=== PATIENT | female | born 1960 | race Hispanic/Latino ===

== ENCOUNTER 2016-09-10 06:09 | Emergency (ER) | payer OTHER ==
[2016-09-10 06:14] VITALS: BMI 28.8
[2016-09-10 06:21] VITALS: RESP 18; TEMP 98; O2SAT 98
--- NOTE | 2016-09-10 07:19 | ED PDOC ---
Arrival/HPI - General Historian: Patient - History of Present Illness Time/Duration: < week Symptom Onset: Sudden Symptom Course: Improving - General Chief Complaint: Trauma Time Seen by Provider: 09/10/16 07:05 - History of Present Illness Narrative History of Present Illness (Text): 56 F with no significant pmh presents after a traumatic fall. Pt states that 2 days ago she slipped over a glass and made a split with her feet which she felt a pop in her L hamstring. She than tries to rest for the past 2 days but than she started to feel a shooting pain down her legs so she came to the ED. Ptreports aren she is able to walk on it but she limps due to the pain. She denies any mcnair, dizziness, sob, cp, abd pain, n/v/d. (Laz Hernandez) Past Medical History - Provider Review Nursing Documentation Reviewed: Yes - Past History Past History: No Previous - Infectious Disease Hx of Infectious Diseases: None - Tetanus Immunization Tetanus Immunization: Unknown - Cardiac Hx Cardiac Disorders: No - Pulmonary Hx Respiratory Disorders: No - Endocrine/Metabolic Hx Hypothyroidism: Yes - Hematological/Oncological Hx Blood Transfusions: No Hx Blood Transfusion Reaction: No - Musculoskeletal/Rheumatological Hx Back Pain: Yes Hx Falls: No Hx Herniated Disk: Yes Hx Spinal Stenosis: Yes Other/Comment: neuropathy. sciatica - Gastrointestinal Other/Comment: Lap Band - Psychiatric Hx Depression: No Hx Emotional Abuse: No Hx Physical Abuse: No Hx Substance Use: No - Surgical History Hx Gastric Bypass Surgery: Yes (lap band) - Anesthesia Hx Anesthesia: Yes Hx Anesthesia Reactions: No Hx Malignant Hyperthermia: No - Suicidal Assessment Feels Threatened In Home Enviroment: No Family/Social History - Physician Review Nursing Documentation Reviewed: Yes Family/Social History: No Known Family HX Smoking Status: Former Smoker Hx Alcohol Use: No Hx Substance Use: No Hx Substance Use Treatment: No Allergies/Home Meds Allergies/Adverse Reactions: Allergies Sulfa (Sulfonamide Antibiotics) Allergy (Verified 04/21/16 02:40) RASH Home Medications: Home Meds Medication Instructions Recorded Confirmed Lacosamide [Vimpat] 50 mg PO DAILY 05/27/12 05/24/14 Zolpidem Tartrate [Ambien] 10 mg PO HS 05/27/12 05/24/14 Levothyroxine [Synthroid] 0.05 mg PO DAILY 05/20/13 05/24/14 Review of Systems - Review of Systems Constitutional: absent: Fatigue, Fevers Eyes: absent: Vision Changes ENT: absent: Hearing Changes Respiratory: absent: SOB, Cough Cardiovascular: absent: Chest Pain, Palpitations Gastrointestinal: absent: Abdominal Pain, Diarrhea, Nausea, Vomiting Genitourinary Female: absent: Dysuria, Frequency Musculoskeletal: Arthralgias, Myalgias Skin: absent: Rash Neurological: absent: Headache, Dizziness Endocrine: absent: Diaphoresis Psychiatric: absent: Anxiety Physical Exam Temperature: Afebrile Blood Pressure: Normal Pulse: Bradycardic Respiratory Rate: Normal Appearance: Positive for: Well-Appearing, Non-Toxic, Comfortable Mental Status: Positive for: Alert and Oriented X 3 - Systems Exam Head: Present: Atraumatic, Normocephalic Pupils: Present: PERRL Extroacular Muscles: Present: EOMI Mouth: Present: Moist Mucous Membranes Neck: Present: Normal Range of Motion Respiratory/Chest: Present: Clear to Auscultation, Good Air Exchange. No: Respiratory Distress, Accessory Muscle Use Cardiovascular: Present: Regular Rate and Rhythm, Normal S1, S2. No: Murmurs Abdomen: Present: Normal Bowel Sounds. No: Tenderness, Distention, Peritoneal Signs Upper Extremity: Present: Normal Inspection. No: Cyanosis, Edema Lower Extremity: Present: Normal Inspection, Normal ROM, Tenderness. No: Edema , CALF TENDERNESS, Swelling, Erythema Neurological: Present: GCS=15, CN II-XII Intact, Speech Normal Skin: Present: Warm, Dry, Normal Color. No: Rashes Psychiatric: Present: Alert, Oriented x 3, Normal Insight, Normal Concentration Medical Decision Making ED Course and Treatment: Impression: 56 F with no significant pmh presents after a traumatic fall. Differential Diagnosis included but are not limited to: hip fx vs avulsion Plan: - Xray of L hip and pelvis - RICE - Pain control - Reassess and disposition Prior Visits: Notes and results from previous visits were reviewed. On 04/21/16 patient came in complaining of neck pain. Progress Notes: 09/10/16 07:36 - Currently denies any pain. Awaiting Xray. 09/10/16 08:19 Xray as read by me and Dr Bacon shows no acute fractures or avulsions. Awaiting official read. Pt is currently ambulating. If her pain gets worse she was instructed to follow up with an orthopedic physician for further imaging. At home continue RICE treatment. (Laz Hernandez) 09/10/16 09:00 Patient seen by resident Came up with treatment and disposition plan with resident Pt after a mechanica fall, extremity pain, weight bearing, ambulating. No distal neurovasc. deficits on evaluation pt informed that she will need ortho f/u and further imaging if pain persists or does not resolve in the next 2 days (Elier Bacon) - RAD Interpretation Radiology Orders: 09/10/16 07:25 Hip Left [HIP MIN 2V W/ PELVIS LT] [RAD] Stat - PA / RESIDENTIAL TREATMENT COUNSELOR / Resident Statement MD/DO has reviewed & agrees with the documentation as recorded. MD/DO has examined the patient and agrees with the treatment plan. Disposition/Present on Arrival - Present on Arrival Any Indicators Present on Arrival: No History of DVT/PE: No History of Uncontrolled Diabetes: No Urinary Catheter: No History of Decub. Ulcer: No History Surgical Site Infection Following: None - Disposition Have Diagnosis and Disposition been Completed?: Yes Disposition Time: 08:20 Patient Plan: Discharge - Disposition Diagnosis: Groin pain Disposition: HOME/ ROUTINE Condition: IMPROVED Additional Instructions: Hanna Mohr, thank you for letting us take care of you today. Your provider was Dr Bacon. You were treated for hip pain after fall. The emergency medical care you received today was directed at your acute symptoms. If you were prescribed any medication, please fill it and take as directed. It may take several days for your symptoms to resolve. Return to the Emergency Department if your symptoms worsen, do not improve, or if you have any other problems. Please contact your doctor or call one of the physicians/clinics you have been referred to that are listed on the Patient Visit Information form that is included in your discharge packet. Bring any paperwork you were given at discharge with you along with any medications you are taking to your follow up visit. Our treatment cannot replace ongoing medical care by a primary care provider (PCP) outside of the emergency department. Thank you for allowing the [facility] team to be part of your care today. Instructed to follow up with an orthopedic physician for further imaging if her pain worsens. Continue RICE treatment at home. Follow up with your PMD with in 1 week.
--- NOTE | 2016-09-10 08:45 | RAD ---
PROCEDURE: Left Hip and pelvis X-ray Radiographs. HISTORY: fall COMPARISON: None. FINDINGS: BONES: Normal. No fracture. JOINTS: Normal. SOFT TISSUES: Normal. OTHER FINDINGS: None. IMPRESSION: Normal left hip radiographs.
[2016-09-10 09:16] VITALS: BP 122/84; PULSE 60
== END 2016-09-10 09:00 | disposition home or self-care (01) ==
LOC: ED 06:09
DX: R10.30 Lower abdominal pain, unspecified (principal); Z87.891 Personal history of nicotine dependence; E03.9 Hypothyroidism, unspecified

== ENCOUNTER 2017-01-20 02:54 | Emergency (ER) | payer OTHER ==
[2017-01-20 02:59] VITALS: BMI 28.1
[2017-01-20 03:00] VITALS: BP 155/71; PULSE 60; TEMP 97.9
--- NOTE | 2017-01-20 03:11 | ED PDOC ---
Arrival/HPI - General Time Seen by Provider: 01/20/17 03:02 Historian: Patient - History of Present Illness Narrative History of Present Illness (Text): 01/20/17 03:10 Hanna Mohr is a 56 year old female who presents to the ED complaining of sore throat, frontal sinus pressure, and cough since yesterday. Patient was placed on Zithromax and has been taking Mucinex for congestion but denies any significant relief. Patient denies any fever, chills, shortness of breath, wheezing, nausea, vomiting, dizziness, or any other complaints. Symptom Onset: Gradual Symptom Course: Unchanged Activities at Onset: Light Context: Home Past Medical History - Provider Review Nursing Documentation Reviewed: Yes - Past History Past History: No Previous - Infectious Disease Hx of Infectious Diseases: None - Tetanus Immunization Tetanus Immunization: Unknown - Cardiac Hx Cardiac Disorders: No - Pulmonary Hx Respiratory Disorders: No - HEENT Hx HEENT Disorder: No - Renal Hx Renal Disorder: No - Endocrine/Metabolic Hx Hypothyroidism: Yes - Hematological/Oncological Hx Blood Transfusions: No Hx Blood Transfusion Reaction: No - Integumentary Hx Dermatological Disorder: No - Musculoskeletal/Rheumatological Hx Back Pain: Yes Hx Falls: No Hx Herniated Disk: Yes Hx Spinal Stenosis: Yes Other/Comment: neuropathy. sciatica - Gastrointestinal Hx Gastrointestinal Disorders: Yes Other/Comment: Lap Band - Genitourinary/Gynecological Hx Genitourinary Disorders: No - Psychiatric Hx Depression: No Hx Emotional Abuse: No Hx Physical Abuse: No Hx Substance Use: No - Surgical History Hx Section: Yes (x2) Hx Gastric Bypass Surgery: Yes (lap band) - Anesthesia Hx Anesthesia: Yes Hx Anesthesia Reactions: No Hx Malignant Hyperthermia: No - Suicidal Assessment Feels Threatened In Home Enviroment: No Family/Social History - Physician Review Nursing Documentation Reviewed: Yes Family/Social History: Unknown Family HX Smoking Status: Former Smoker Hx Alcohol Use: No Hx Substance Use: No Hx Substance Use Treatment: No Allergies/Home Meds Allergies/Adverse Reactions: Allergies Sulfa (Sulfonamide Antibiotics) Allergy (Verified 01/20/17 02:59) RASH Home Medications: Home Meds Medication Instructions Recorded Confirmed Azithromycin [Z-Audie] 250 mg PO DAILY 01/20/17 01/20/17 Review of Systems - Physician Review All systems were reviewed & negative as marked: Yes - Review of Systems Constitutional: Normal. absent: Fevers Eyes: Normal ENT: Sore Throat, Sinus Congestion Respiratory: Cough. absent: SOB, Sputum, Wheezing Cardiovascular: Normal. absent: Chest Pain Gastrointestinal: Normal. absent: Abdominal Pain, Diarrhea, Nausea, Vomiting Genitourinary Female: Normal. absent: Dysuria, Frequency, Hematuria, Urine Output Changes Musculoskeletal: Normal. absent: Back Pain, Neck Pain Skin: Normal. absent: Rash Neurological: Headache. absent: Dizziness Endocrine: Normal Hemo/Lymphatic: Normal Psychiatric: Normal Physical Exam Vital Signs Reviewed: Yes Vital Signs Temp Pulse Resp BP Pulse Ox 01/20/17 03:52 18 98 01/20/17 03:00 97.9 F 60 17 155/71 H 97 Temperature: Afebrile Blood Pressure: Normal Pulse: Regular Respiratory Rate: Normal Appearance: Positive for: Well-Appearing, Non-Toxic, Comfortable Pain Distress: None Mental Status: Positive for: Alert and Oriented X 3 - Systems Exam Head: Present: Atraumatic, Normocephalic Pupils: Present: PERRL Extroacular Muscles: Present: EOMI Conjunctiva: Present: Normal Mouth: Present: Moist Mucous Membranes Pharnyx: Present: ERYTHEMA (Minimal erythema to posterior pharynx). No: EXUDATE , TONSILS ENLARGED, Peritonsilar Swelling, Uvular Deviation, Muffled/Hoarse Voice, Strider, Soft Palate/Uvular Edema Nose (External): Present: Atraumatic Nose (Internal): Present: Other (Nasal congestion) Neck: Present: Normal Range of Motion. No: Meningeal Signs, MIDLINE TENDERNESS , Paraspinal Tenderness Respiratory/Chest: Present: Clear to Auscultation, Good Air Exchange. No: Respiratory Distress, Accessory Muscle Use Cardiovascular: Present: Regular Rate and Rhythm, Normal S1, S2. No: Murmurs Abdomen: Present: Normal Bowel Sounds. No: Tenderness, Distention, Peritoneal Signs Upper Extremity: Present: Normal Inspection. No: Cyanosis, Edema Lower Extremity: Present: Normal Inspection. No: Edema Neurological: Present: GCS=15, CN II-XII Intact, Speech Normal Skin: Present: Warm, Dry, Normal Color. No: Rashes Psychiatric: Present: Alert, Oriented x 3, Normal Insight, Normal Concentration Medical Decision Making ED Course and Treatment: 01/20/17 03:10 Impression: 56 year old female c/o sore throat, frontal sinus pressure, and cough since yesterday. Differential Diagnosis included but are not limited to: pharyngitis vs. URI vs. sinusitis Plan: -- Reassess and disposition Progress Notes: Pt is in no acute distress. Discussed plan with pt, who verbalizes understanding. Patient stable for discharge. Instructed to f/u with PMD within 1 -2 days or return if symptoms persist or worsen. - Scribe Statement The provider has reviewed the documentation as recorded by the Scribe Beverly Heath All medical record entries made by the Scribe were at my direction and personally dictated by me. I have reviewed the chart and agree that the record accurately reflects my personal performance of the history, physical exam, medical decision making, and the department course for this patient. I have also personally directed, reviewed, and agree with the discharge instructions and disposition. Disposition/Present on Arrival - Present on Arrival Any Indicators Present on Arrival: No History of DVT/PE: No History of Uncontrolled Diabetes: No Urinary Catheter: No History of Decub. Ulcer: No History Surgical Site Infection Following: None - Disposition Have Diagnosis and Disposition been Completed?: Yes Diagnosis: Pharyngitis, URI (upper respiratory infection) Disposition: HOME/ ROUTINE Disposition Time: 03:12 Patient Plan: Discharge Condition: GOOD Discharge Instructions (ExitCare): Pharyngitis (ED), Upper Respiratory Infection (ED) Additional Instructions: Drink plenty of liquids/Continue recently started Zithromax meds/take medication prescribed/follow up with your doctor Prescriptions: Fexofenadine/Pseudoephedrine [Janet-D 12 Hour Tablet] 1 each PO BID PRN #[id number] PRN Reason: Nasal Congestion Forms: [facility] [facility] (Arabic)
[2017-01-20 03:53] VITALS: RESP 18; O2SAT 98
== END 2017-01-20 03:53 | disposition home or self-care (01) ==
LOC: ED 02:54
DX: J02.9 Acute pharyngitis, unspecified (principal); Z87.891 Personal history of nicotine dependence

== ENCOUNTER 2017-04-12 11:56 | Emergency (ER) | payer OTHER ==
[2017-04-12 12:10] VITALS: BP 130/90; PULSE 85; RESP 18; TEMP 97.8; O2SAT 100
[2017-04-12 12:11] VITALS: BMI 27.5
[2017-04-12 12:51] LABS: BASO # 0.02 K/mm3 (0.0-2.0); BASO % 0.3 % (0.0-3.0); EOS % 0.6 % (1.5-5.0); GRAN # 4.09 (1.4-6.5); GRAN % 64.6 % (50.0-68.0); HEMATOCRIT 42.8 % (36.0-48.0); LYMPH # 1.7 (1.2-3.4); LYMPH % 26.9 % (22.0-35.0); MEAN CELL VOLUME 88.2 fl (80.0-105.0); MEAN CORPUSCULAR HEMOGLOBIN 30.1 pg (25.0-35.0); MEAN CORPUSCULAR HGB CONC 34.1 g/dl (31.0-37.0); MONO # 0.5 (0.1-0.6); MONO % 7.6 % (1.0-6.0); RED CELL DISTRIBUTION WIDTH 12.4 % (11.5-14.5); WHITE BLOOD COUNT 6.3 10^3/ul (4.5-11.0)
[2017-04-12 13:01] LABS: ALB/GLOB RATIO 1.3 (1.1-1.8); ALKALINE PHOSPHATASE 79 U/L (38-126); ALT/SGPT 37 U/L (7-56); AMYLASE 55 U/L (35-125); AST/SGOT 29 U/L (14-36); BILIRUBIN,TOTAL 0.9 mg/dL (0.2-1.3); BLOOD UREA NITROGEN 12 mg/dL (7-21); CALCIUM 9.8 mg/dL (8.4-10.5); CARBON DIOXIDE 30 mmol/L (21-33); CHLORIDE 102 mmol/L (98-107); GFR AFRICAN-AMERICAN > 60; GLUCOSE,RANDOM 104 mg/dL (70-110); POTASSIUM 4.4 mmol/L (3.6-5.0); SODIUM 141 mmol/L (132-148); TOTAL PROTEIN 7.8 g/dL (5.8-8.3)
--- NOTE | 2017-04-12 13:36 | ED PDOC ---
Arrival/HPI - General Chief Complaint: Medical Clearance Time Seen by Provider: 04/12/17 12:19 Historian: Patient - History of Present Illness Narrative History of Present Illness (Text): 04/12/17 13:20 A 56 year old female, who denies any significant past medical history, presents to the emergency department for accidental needle stick puncture to the right 3rd digit. The patient reports she was at work when she was handling a 20 gauge angiocath needle that slipped and punctured the volar aspect of her finger drawing blood. The patient states she cleaned the wound and applied a bandage to it. The patient states she is unsure of the HIV/hepatitis status of sources the needle stick and does not know if there has been contact with HIV or Hepatitis C. The patient was sent to the emergency department due to employee protocol for medical clearance. The patient does note her tetanus vaccination is up to date. The patient is completely asymptomatic and has no complaints at this time. Time/Duration: Prior to Arrival Symptom Onset: Sudden Symptom Course: Unchanged Activities at Onset: Light Context: Work Past Medical History - Provider Review Nursing Documentation Reviewed: Yes - Past History Past History: No Previous - Infectious Disease Hx of Infectious Diseases: None - Tetanus Immunization Tetanus Immunization: Unknown - Reproductive Menopause: Yes - Cardiac Hx Cardiac Disorders: No - Pulmonary Hx Respiratory Disorders: No - Neurological Hx Neurological Disorder: No - HEENT Hx HEENT Disorder: No - Renal Hx Renal Disorder: No - Endocrine/Metabolic Hx Endocrine Disorders: Yes Hx Hypothyroidism: Yes - Hematological/Oncological Hx Blood Disorders: No - Integumentary Hx Dermatological Disorder: No - Musculoskeletal/Rheumatological Hx Musculoskeletal Disorders: Yes Hx Back Pain: Yes Hx Herniated Disk: Yes Hx Spinal Stenosis: Yes Other/Comment: neuropathy. sciatica - Gastrointestinal Hx Gastrointestinal Disorders: Yes Other/Comment: Lap Band - Genitourinary/Gynecological Hx Genitourinary Disorders: No - Psychiatric Hx Psychophysiologic Disorder: No Hx Substance Use: No - Surgical History Hx Section: Yes (x2) Hx Gastric Bypass Surgery: Yes (lap band) - Anesthesia Hx Anesthesia: Yes Hx Anesthesia Reactions: No Hx Malignant Hyperthermia: No - Suicidal Assessment Feels Threatened In Home Enviroment: No Family/Social History - Physician Review Nursing Documentation Reviewed: Yes Family/Social History: No Known Family HX Smoking Status: Former Smoker Hx Alcohol Use: No Hx Substance Use: No Hx Substance Use Treatment: No Allergies/Home Meds Allergies/Adverse Reactions: Allergies Sulfa (Sulfonamide Antibiotics) Allergy (Verified 01/20/17 02:59) RASH Home Medications: Home Meds Medication Instructions Recorded Confirmed Azithromycin [Z-Audie] 250 mg PO DAILY 01/20/17 01/20/17 Review of Systems - Physician Review All systems were reviewed & negative as marked: Yes - Review of Systems Constitutional: absent: Fevers Cardiovascular: absent: Chest Pain Gastrointestinal: absent: Abdominal Pain Skin: Other (puncture to right 3rd digit) Neurological: absent: Headache, Dizziness Physical Exam Vital Signs Reviewed: Yes Vital Signs Temp Pulse Resp BP Pulse Ox 04/12/17 12:09 97.8 F 85 18 130/90 100 Temperature: Afebrile Blood Pressure: Normal Pulse: Regular Respiratory Rate: Normal Appearance: Positive for: Well-Appearing, Non-Toxic, Comfortable Pain Distress: None Mental Status: Positive for: Alert and Oriented X 3 - Systems Exam Head: Present: Atraumatic, Normocephalic Pupils: Present: PERRL Extroacular Muscles: Present: EOMI Conjunctiva: Present: Normal Mouth: Present: Moist Mucous Membranes Neck: Present: Normal Range of Motion Respiratory/Chest: Present: Clear to Auscultation, Good Air Exchange. No: Respiratory Distress, Accessory Muscle Use Cardiovascular: Present: Regular Rate and Rhythm, Normal S1, S2. No: Murmurs Abdomen: Present: Normal Bowel Sounds. No: Tenderness, Distention, Peritoneal Signs Back: Present: Normal Inspection Upper Extremity: Present: Normal ROM, NORMAL PULSES, Neurovascularly Intact, Capillary Refill < 2s, Other (small puncture to volar aspect of distal tip of right 3rd digit; no erthema, edema, pus, or active bleeding.). No: Cyanosis, Edema, Tenderness, Swelling, Erythema, Temperature Abnormalties, Deformity Lower Extremity: Present: Normal Inspection. No: Edema Neurological: Present: GCS=15, CN II-XII Intact, Speech Normal Skin: Present: Warm, Dry, Normal Color. No: Rashes Psychiatric: Present: Alert, Oriented x 3, Normal Insight, Normal Concentration Medical Decision Making ED Course and Treatment: 04/12/17 13:36 Patient is nontoxic well-appearing in no distress with stable vital signs. pt with needlestick to right 3rd finger. pt alert and oriented in no distress. source of needle stick is unknown; lab is pending cbc wnl cmp; wnl rapid HIV: negative ua; wnl Patient's tetanus is up-to-date Progress Notes: The patient was informed on the risks and benefits of receiving a HIV prophylaxis. The patient has refused HIV prophylaxis. pt states she wants to wait until HIV status from source is obtained and then will decide if she will start HIV prophylaxis. I have advised the patient that she has 48 hours to start HIV prophylaxis. I've advised the patient that the earlier that she starts the HIV prophylaxis the lower the risk of huy HIV. Patient is aware and states she will follow with the source's HIV status. pt was advised that even if source HIV is negative the patient could still have contracted HIV recently and tests would be too early to be detectable. Patient was advised that she is to follow-up with employee health tomorrow to return immediately if she changes her mind and chooses to start HIV prophylaxis Patient verbalizes understanding of discharge instructions and need for immediate followup. all aspects of this case were discussed the attending of record. impression; needlestick, puncture wound finger Follow up with Employee health TOMORROW. Return immediately if you change your mind and choose to start HIV prophylaxis. - Lab Interpretations Lab Results: 04/12/17 12:30 04/12/17 12:30 Lab Results 04/12/17 12:35: Urine Color Yellow, Urine Appearance Clear, Urine pH 7.0, Ur Specific [place] <= 1.005, Urine Protein Negative, Urine Glucose (UA) Negative, Urine Ketones Negative, Urine Blood Negative, Urine Nitrate Negative, Urine Bilirubin Negative, Urine Urobilinogen 0.2, Ur Leukocyte Esterase Negative 04/12/17 12:30: HIV-1 Ab Rapid Screen Non reactive 04/12/17 12:30: Sodium 141, Potassium 4.4, Chloride 102, Carbon Dioxide 30, Anion Gap 14, BUN 12, Creatinine 0.7, Est GFR ( Amer) > 60, Est GFR (Non- Af Amer) > 60, Random Glucose 104, Calcium 9.8, Total Bilirubin 0.9, AST 29, ALT 37, Alkaline Phosphatase 79, Total Protein 7.8, Albumin 4.5, Globulin 3.4, Albumin/Globulin Ratio 1.3, Amylase 55 04/12/17 12:30: WBC 6.3, RBC 4.85, Hgb 14.6, Hct 42.8, MCV 88.2, MCH 30.1, MCHC 34.1, RDW 12.4, Plt Count 345, MPV 10.0, Gran % 64.6, Lymph % (Auto) 26.9, [place] % (Auto) 7.6 H, Eos % (Auto) 0.6 L, Baso % (Auto) 0.3, Gran # 4.09, Lymph # 1.7 , [place] # 0.5, Eos # 0.0, Baso # 0.02 - Scribe Statement The provider has reviewed the documentation as recorded by the Lizzyibdevon Oneal Provider Scribe Attestation: All medical record entries made by the Scribe were at my direction and personally dictated by me. I have reviewed the chart and agree that the record accurately reflects my personal performance of the history, physical exam, medical decision making, and the department course for this patient. I have also personally directed, reviewed, and agree with the discharge instructions and disposition. Disposition/Present on Arrival - Present on Arrival Any Indicators Present on Arrival: No History of DVT/PE: No History of Uncontrolled Diabetes: No Urinary Catheter: No History of Decub. Ulcer: No History Surgical Site Infection Following: None - Disposition Have Diagnosis and Disposition been Completed?: Yes Diagnosis: Needlestick injury of finger Disposition: HOME/ ROUTINE Disposition Time: 14:01 Patient Plan: Discharge Patient Problems: Current Active Problems Problem Status Onset Needlestick injury of finger Acute Condition: GOOD Discharge Instructions (ExitCare): Needle Stick Injuries (ED), Postexposure Prophylaxis (ED) Additional Instructions: Follow up with employee health tomorrow return if you change your mind and wish to start HIV prophylaxis [employer] Employee Regarding your Work Related Injury, you are instructed to do all of the following by next day: 1. Notify [employer] [facility] Employee Health Department of the sustained injury and arrange for any follow-up appointments if needed during the next business day. If the office is closed or no answer is received, please leave a detailed voice message. Message should include your full name, department and lunch counter manager, date of injury, date of ED visit if applicable. Employee Health can be reached at [phone]. 2. If there is time lost, notify [employer] [facility] [employer] Human Resources Department of the work related injury the next business day at [phone]. Referrals: Jakob Kaye MD [Primary Care Provider] - Follow up with primary Forms: [employer] (Persian)
[2017-04-12] MEDS ORDERED: Emtricitabine-Tenofovir 200 mg-300 mg Tab PO STA (13:58)
[2017-04-12 14:06] LABS: URINE BILIRUBIN NEGATIVE (NEGATIVE); URINE BLOOD NEGATIVE (NEGATIVE); URINE GLUCOSE (UA) NEGATIVE (NEGATIVE); URINE KETONE NEGATIVE (NEGATIVE); URINE LEUKOCYTE ESTERASE NEGATIVE Leu/uL (NEGATIVE); URINE PROTEIN NEGATIVE mg/dL (<30 mg/dL); URINE UROBILINOGEN 0.2 E.U./dL (<1 E.U./dL)
[2017-04-12 14:07] LABS: URINE APPEARANCE CLEAR (CLEAR); URINE COLOR YELLOW (YELLOW)
== END 2017-04-12 14:00 | disposition home or self-care (01) ==
LOC: ED 11:56
DX: S61.232A Puncture wound without foreign body of right middle finger without damage to nail, initial encounter (principal); W46.0XXA Contact with hypodermic needle, initial encounter; Y99.0 Civilian activity done for income or pay; Z87.891 Personal history of nicotine dependence; E03.9 Hypothyroidism, unspecified; Z88.2 Allergy status to sulfonamides

== ENCOUNTER 2017-05-23 10:26 | Emergency (ER) | payer OTHER ==
[2017-05-23 10:37] VITALS: BMI 27.3
[2017-05-23 10:38] VITALS: BP 136/82; PULSE 57; RESP 18; TEMP 98.4; O2SAT 98
--- NOTE | 2017-05-23 10:49 | ED PDOC ---
Arrival/HPI - General Chief Complaint: Lower Extremity Problem/Injury Time Seen by Provider: 05/23/17 10:41 Historian: Patient - History of Present Illness Narrative History of Present Illness (Text): 05/23/17 10:46 56 y/o female, pmh including hypothyroidism, allergic to sulfa, not on any antiplatete or anticoagulant, c/o both knee and left hand injury but with rt. knee pain s/p fall at work x 1 hour. 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 knee and landed on the lt. hand, no hand or wrist pain, no head/neck/back injury, no numbness or tingling, no urinary or bowel incontinence or retention, no rash, no other medical or psychological complaints. Past Medical History - Provider Review Nursing Documentation Reviewed: Yes - Past History Past History: No Previous - Infectious Disease Hx of Infectious Diseases: None - Tetanus Immunization Tetanus Immunization: Unknown - Cardiac Hx Cardiac Disorders: No - Pulmonary Hx Respiratory Disorders: No - Neurological Hx Neurological Disorder: No - HEENT Hx HEENT Disorder: No - Renal Hx Renal Disorder: No - Endocrine/Metabolic Hx Endocrine Disorders: Yes Hx Hypothyroidism: Yes - Hematological/Oncological Hx Blood Disorders: No - Integumentary Hx Dermatological Disorder: No - Musculoskeletal/Rheumatological Hx Musculoskeletal Disorders: Yes Hx Back Pain: Yes Hx Herniated Disk: Yes Hx Spinal Stenosis: Yes Other/Comment: neuropathy. sciatica - Gastrointestinal Hx Gastrointestinal Disorders: Yes Other/Comment: Lap Band - Genitourinary/Gynecological Hx Genitourinary Disorders: No - Psychiatric Hx Psychophysiologic Disorder: No Hx Substance Use: No - Surgical History Hx Section: Yes (x2) Hx Gastric Bypass Surgery: Yes (lap band) - Anesthesia Hx Anesthesia: Yes Hx Anesthesia Reactions: No Hx Malignant Hyperthermia: No - Suicidal Assessment Feels Threatened In Home Enviroment: No Family/Social History - Physician Review Nursing Documentation Reviewed: Yes Family/Social History: Unknown Family HX Smoking Status: Former Smoker Hx Alcohol Use: No Hx Substance Use: No Hx Substance Use Treatment: No Allergies/Home Meds Allergies/Adverse Reactions: Allergies Sulfa (Sulfonamide Antibiotics) Allergy (Verified 05/23/17 10:35) RASH Home Medications: Home Meds Medication Instructions Recorded Confirmed Levothyroxine Sodium [Levoxyl] 05/23/17 Zolpidem [Ambien] 05/23/17 Review of Systems - Review of Systems Constitutional: absent: Fatigue, Fevers Eyes: absent: Vision Changes ENT: absent: Hearing Changes Respiratory: absent: SOB, Cough Cardiovascular: absent: Chest Pain Gastrointestinal: absent: Abdominal Pain, Nausea, Vomiting Musculoskeletal: Arthralgias. absent: Back Pain, Neck Pain, Joint Swelling, Myalgias Skin: absent: Rash, Pruritis, Skin Lesions Neurological: absent: Headache, Dizziness Psychiatric: absent: Anxiety, Depression, Suicidal Ideation Physical Exam Vital Signs Reviewed: Yes Vital Signs Temp Pulse Resp BP Pulse Ox 05/23/17 10:37 98.4 F 57 L 18 136/82 98 Temperature: Afebrile Blood Pressure: Normal Pulse: Bradycardic Respiratory Rate: Normal Appearance: Positive for: Well-Appearing, Non-Toxic, Comfortable Pain Distress: Mild Mental Status: Positive for: Alert and Oriented X 3 - Systems Exam Head: Present: Atraumatic, Normocephalic. No: Tenderness, Contusion, Swelling, Ecchymosis, Abrasion, Laceration, Other Pupils: Present: PERRL Extroacular Muscles: Present: EOMI Conjunctiva: Present: Normal Ears: Present: NORMAL TM, Normal Canal. No: Erythema Mouth: Present: Moist Mucous Membranes Pharnyx: No: ERYTHEMA, EXUDATE, TONSILS ENLARGED, Uvular Deviation, Soft Palate/ Uvular Edema Nose (External): Present: Atraumatic. No: Abrasion, Contusion, Laceration Nose (Internal): Present: Normal Inspection, No Active Bleeding. No: Rhinorrhea , Septal Hematoma, Epistaxis Neck: Present: Normal Range of Motion, Trachea Midline. No: Meningeal Signs, MIDLINE TENDERNESS, Paraspinal Tenderness, Lymphadenopathy Respiratory/Chest: Present: Clear to Auscultation, Good Air Exchange. No: Respiratory Distress, Accessory Muscle Use, Wheezes, Decreased Breath Sounds, Rales, Retracting, Rhonchi, Tender to Palpation Cardiovascular: Present: Regular Rate and Rhythm, Normal S1, S2. No: Murmurs, Peripheal Pulses Present, Tachycardic Abdomen: Present: Normal Bowel Sounds. No: Tenderness, Distention, Peritoneal Signs, Rebound, Guarding Back: Present: Normal Inspection Upper Extremity: Present: Normal Inspection, Normal ROM, NORMAL PULSES, Neurovascularly Intact, Capillary Refill < 2s, Other (Lt. hand/wrist: no tenderness or swelling, no scaphoid tenderness, FROM without limitation, no rash , no ecchymosis, sensation intact, motor 5/5, +radial pulse, capillary refill< 2 seconds, neurovascular intact. ). No: Cyanosis, Edema, Deformity Lower Extremity: Present: Normal Inspection, Other (Both knees: +ttp on the rt. anterior knee region or swelling, lt. knee no tenderness or swelling, FROM without limitation, sensation intact, motor 5/5, +DPPT pulses, capillary refill < 2 seconds, neurovascular intact, no abrasion/laceration. ). No: Edema Neurological: Present: GCS=15, Speech Normal, Motor Func Grossly Intact, Gait Normal, Memory Normal Skin: Present: Warm, Dry, Normal Color. No: Rashes Psychiatric: Present: Alert, Oriented x 3, Normal Insight, Normal Concentration Medical Decision Making ED Course and Treatment: 05/23/17 10:50 -Rt. knee xray -Pt. refused pain med -Observe and reassess 05/23/17 11:49 -Pt. refused pain med, wants to go back to work, stated that she can walk with no limping. -Rt. knee xray show no fracture or dislocation, mild anterior soft tissue swelling. -pt. refused pain med prescription as well. -Discharge home with erum wrap, crutches, take tylenol or motrin for pain, follow up with your own pmd and orthopedic within 2 days, follow up with your employee health within 2 days as well, return to the ER for any new or worsening signs or symptoms. - RAD Interpretation Radiology Orders: 05/23/17 10:45 KNEE W PATELLA RIGHT 3 VIEW [RAD] Stat PROCEDURE: Right Knee Radiographs. HISTORY: rt. knee injury s/p fall COMPARISON: None. FINDINGS: BONES: There is no acute displaced fracture or bone destruction. Bone alignment is normal. There is periarticular bone demineralization. JOINTS: There is mild tricompartmental degenerative osteoarthrosis with marginal spurring and tibial spiking, worse in the medial compartment. JOINT EFFUSION: There is a moderate suprapatellar joint effusion. OTHER FINDINGS: There is small linear calcification medial to the medial femoral condyles, likely sequela of remote injury. IMPRESSION: No acute displaced fracture or dislocation. Moderate suprapatellar joint effusion. Senior Hr Business Partner: Radiologist - PA / OPERATIONS MANAGER STATION / Resident Statement MD/DO has reviewed & agrees with the documentation as recorded. Disposition/Present on Arrival - Present on Arrival Any Indicators Present on Arrival: No History of DVT/PE: No History of Uncontrolled Diabetes: No Urinary Catheter: No History of Decub. Ulcer: No History Surgical Site Infection Following: None - Disposition Have Diagnosis and Disposition been Completed?: Yes Diagnosis: Accidental fall, Knee injury, Hand injury, Knee contusion Disposition: HOME/ ROUTINE Disposition Time: 10:50 Patient Plan: Discharge Condition: GOOD Additional Instructions: -Discharge home with erum wrap, crutches, take tylenol or motrin for pain, follow up with your own pmd and orthopedic within 2 days, follow up with your employee health within 2 days as well, return to the ER for any new or worsening signs or symptoms. Referrals: Jakob Kaye MD [Primary Care Provider] - Follow up with primary Sin Mei MD [Staff Provider] - Follow up with primary Forms: [employer] (Kiswahili), WORK NOTE
--- NOTE | 2017-05-23 11:47 | RAD ---
PROCEDURE: Right Knee Radiographs. HISTORY: rt. knee injury s/p fall COMPARISON: None. FINDINGS: BONES: There is no acute displaced fracture or bone destruction. Bone alignment is normal. There is periarticular bone demineralization. JOINTS: There is mild tricompartmental degenerative osteoarthrosis with marginal spurring and tibial spiking, worse in the medial compartment. JOINT EFFUSION: There is a moderate suprapatellar joint effusion. OTHER FINDINGS: There is small linear calcification medial to the medial femoral condyles, likely sequela of remote injury. IMPRESSION: No acute displaced fracture or dislocation. Moderate suprapatellar joint effusion.
== END 2017-05-23 11:54 | disposition home or self-care (01) ==
LOC: ED 10:26
DX: S80.01XA Contusion of right knee, initial encounter (principal); S69.92XA Unspecified injury of left wrist, hand and finger(s), initial encounter; W19.XXXA Unspecified fall, initial encounter; Y99.0 Civilian activity done for income or pay; E03.9 Hypothyroidism, unspecified; Z87.891 Personal history of nicotine dependence; Z88.2 Allergy status to sulfonamides; Z98.84 Bariatric surgery status

== ENCOUNTER 2017-05-26 06:26 | Emergency (ER) | payer OTHER ==
[2017-05-26 06:27] VITALS: BMI 27.3
[2017-05-26 06:29] VITALS: BP 142/77; PULSE 68; RESP 17; TEMP 97.6; O2SAT 98
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
--- NOTE | 2017-05-26 09:19 | RAD ---
PROCEDURE: Right small finger radiographs. HISTORY: pain COMPARISON: None available TECHNIQUE: AP radiograph of the right hand, as well as spot oblique and lateral images of small finger were obtained. FINDINGS: RIGHT SMALL FINGER: Unremarkable right 5th digit without acute displaced fracture identified. Remainder of the right hand (as seen on the AP view) grossly unremarkable. JOINTS: No dislocation. SOFT TISSUES: Unremarkable. No evidence of radiopaque foreign body. OTHER FINDINGS: None. IMPRESSION: No acute displaced fracture or dislocation identified. If symptoms persist or if there is continued clinical concern, x-ray follow-up in 7-10 days should be considered.
== END 2017-05-26 07:31 | disposition home or self-care (01) ==
LOC: ED 06:26
DX: S56.417A Strain of extensor muscle, fascia and tendon of right little finger at forearm level, initial encounter (principal); X50.0XXA Overexertion from strenuous movement or load, initial encounter; Y92.9 Unspecified place or not applicable

== ENCOUNTER 2018-06-30 13:47 | Outpatient (CLI) | payer OTHER | END 2018-06-30 13:48 | disposition home or self-care (01) | LOC: LAB 13:47 ==

== ENCOUNTER 2018-08-18 07:07 | Emergency (ER) | payer OTHER ==
[2018-08-18 07:08] VITALS: BMI 27.3
[2018-08-18 07:14] VITALS: BP 143/63; PULSE 97; RESP 16; O2SAT 97
[2018-08-18] MEDS ORDERED: Lidocaine 5% Patch TD ONE (07:20)
--- NOTE | 2018-08-18 07:31 | ED PDOC ---
Arrival/HPI - General Chief Complaint: Back Pain Time Seen by Provider: 08/18/18 07:12 - History of Present Illness Narrative History of Present Illness (Text): 08/18/18 07:24 A 58 year old female, whose past medical history includes hypothyroidism spinal stenosis and sulfa allergy, presents to the ED complaining of back pain for the past 2 days. Patient reports pain is in the middle of her back and worsens with cough. 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 Patient also notes PO intake of Motrin, without any significant improvement in pain. Patient denies any fevers, chills, headache, dizziness, chest pain, shortness of breath, dyspnea on exertion, cough, abdominal pain, nausea, vomiting, diarrhea, neck pain, urinary/bowel changes, or any other complaints. PMD: Dr. Kaye Time/Duration: < week (2 days) Symptom Onset: Gradual Symptom Course: Unchanged Activities at Onset: Other (Pushing a bed) Context: Work Past Medical History - Provider Review Nursing Documentation Reviewed: Yes - Past History Past History: No Previous - Infectious Disease Hx of Infectious Diseases: None - Tetanus Immunization Tetanus Immunization: Unknown - Reproductive Menopause: Yes - Cardiac Hx Cardiac Disorders: No - Pulmonary Hx Respiratory Disorders: No - Neurological Hx Neurological Disorder: No - HEENT Hx HEENT Disorder: No - Renal Hx Renal Disorder: No - Endocrine/Metabolic Hx Endocrine Disorders: Yes Hx Hypothyroidism: Yes - Hematological/Oncological Hx Blood Disorders: No - Integumentary Hx Dermatological Disorder: No - Musculoskeletal/Rheumatological Hx Musculoskeletal Disorders: Yes Hx Back Pain: Yes Hx Herniated Disk: Yes Hx Spinal Stenosis: Yes Other/Comment: neuropathy. sciatica - Gastrointestinal Hx Gastrointestinal Disorders: Yes Other/Comment: Lap Band - Genitourinary/Gynecological Hx Genitourinary Disorders: No - Psychiatric Hx Psychophysiologic Disorder: No Hx Substance Use: No - Surgical History Hx Section: Yes (x2) Hx Gastric Bypass Surgery: Yes (lap band) - Anesthesia Hx Anesthesia: Yes Hx Anesthesia Reactions: No Hx Malignant Hyperthermia: No - Suicidal Assessment Feels Threatened In Home Enviroment: No Family/Social History - Physician Review Nursing Documentation Reviewed: Yes Family/Social History: Unknown Family HX Smoking Status: Former Smoker Hx Alcohol Use: No Hx Substance Use: No Hx Substance Use Treatment: No Allergies/Home Meds Allergies/Adverse Reactions: Allergies Sulfa (Sulfonamide Antibiotics) Allergy (Verified 05/23/17 10:35) RASH Home Medications: Home Meds Medication Instructions Recorded Confirmed Levothyroxine Sodium [Levoxyl] 05/23/17 Zolpidem [Ambien] 05/23/17 Review of Systems - Physician Review All systems were reviewed & negative as marked: Yes - Review of Systems Constitutional: Normal. absent: Fatigue, Fevers Eyes: Normal. absent: Vision Changes ENT: Normal. absent: Hearing Changes, Rhinorrhea Respiratory: Normal. absent: SOB, Cough Cardiovascular: Normal. absent: Chest Pain Gastrointestinal: Normal. absent: Abdominal Pain, Diarrhea, Nausea, Vomiting Genitourinary Female: Normal. absent: Dysuria, Hematuria Musculoskeletal: Back Pain Skin: Normal. absent: Rash Neurological: Normal. absent: Headache, Dizziness Endocrine: Normal. absent: Diaphoresis Hemo/Lymphatic: Normal. absent: Adenopathy Psychiatric: Normal. absent: Anxiety, Depression Physical Exam Vital Signs Reviewed: Yes Vital Signs Pulse Resp BP Pulse Ox 08/18/18 07:08 97 H 16 143/63 97 Temperature: Afebrile Blood Pressure: Normal Pulse: Regular Respiratory Rate: Normal Appearance: Positive for: Well-Appearing, Non-Toxic, Comfortable Pain Distress: None Mental Status: Positive for: Alert and Oriented X 3 - Systems Exam Head: Present: Atraumatic, Normocephalic Pupils: Present: PERRL Extroacular Muscles: Present: EOMI Conjunctiva: Present: Normal Mouth: Present: Moist Mucous Membranes Neck: Present: Normal Range of Motion Respiratory/Chest: Present: Clear to Auscultation, Good Air Exchange. No: Respiratory Distress, Accessory Muscle Use Cardiovascular: Present: Regular Rate and Rhythm, Normal S1, S2. No: Murmurs Abdomen: No: Tenderness, Distention, Peritoneal Signs Back: Present: Paraspinal Tenderness (Mid right back paraspinal tenderness), O ther (Musculoskeletal pain secondary to mechanical movement, full ROM, sensations intact). No: Midline Tenderness Upper Extremity: Present: Normal Inspection. No: Cyanosis, Edema Neurological: Present: GCS=15, CN II-XII Intact, Speech Normal. No: Other (No ataxia) Skin: Present: Warm, Dry, Normal Color. No: Rashes Psychiatric: Present: Alert, Oriented x 3, Normal Insight, Normal Concentration Medical Decision Making ED Course and Treatment: 08/18/18 07:39 Impression: 58 year old female who presents to the ED complaining of mid-back pain most likely MSK Plan: -- Tylenol -- Lidoderm -- Patient was given a work note and advised to f/u with [employer] [facility] and with her usual medical care with her pmd. Advised to return to the ED symptoms worsen or any other concern. Prior Visits: Notes and results from previous visits were reviewed. - Medication Orders Current Medication Orders: Acetaminophen (Tylenol 325mg Tab) 650 mg PO STAT STA Stop: 08/18/18 07:22 Lidocaine (Lidoderm) 1 ea TD ONCE ONE Stop: 08/18/18 07:21 - Scribe Statement The provider has reviewed the documentation as recorded by the Geovany Dominguez Provider Scribe Attestation: All medical record entries made by the Scribe were at my direction and personally dictated by me. I have reviewed the chart and agree that the record accurately reflects my personal performance of the history, physical exam, medical decision making, and the department course for this patient. I have also personally directed, reviewed, and agree with the discharge instructions and disposition. Disposition/Present on Arrival - Present on Arrival Any Indicators Present on Arrival: No History of DVT/PE: No History of Uncontrolled Diabetes: No Urinary Catheter: No History of Decub. Ulcer: No History Surgical Site Infection Following: None - Disposition Have Diagnosis and Disposition been Completed?: Yes Diagnosis: Back strain Disposition: HOME/ ROUTINE Disposition Time: 07:44 Patient Plan: Discharge Condition: IMPROVED Discharge Instructions (ExitCare): Muscle Strain, Low Back Pain in Adults Additional Instructions: ALIA STRONG, thank you for letting us take care of you today. Your provider was Kd Cordero DO and you were treated for Back strain. The emergency medical care you received today was directed at your acute symptoms. If you were prescribed any medication, please fill it and take as directed. It may take several days for your symptoms to resolve. Return to the Emergency Department if your symptoms worsen, do not improve, or if you have any other problems. [facility] Employee Regarding your Work Related Injury, you are instructed to do all of the following by next day: 1. Notify [facility] Employee Health Department of the sustained injury and arrange for any follow-up appointments if needed during the next business day. If the office is closed or no answer is received, please leave a detailed voice message. 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 Employee Health can be reached at [phone]. 2. If there is time lost, notify [facility] Human Resources Department of the work related injury the next business day at [phone]. Please contact your doctor or call one of the physicians/clinics you have been referred to that are listed on the Patient Visit Information form that is included in your discharge packet. Bring any paperwork you were given at discharge with you along with any medications you are taking to your follow up visit. Our treatment cannot replace ongoing medical care by a primary care provider outside of the emergency department. Thank you for allowing the [facility] team to be part of your care today. If you had an X-Ray or CT scan: A Radiologist will review the ED reading if any change in treatment is needed we will contact you. If you had a blood, urine, or wound culture: It will take several days for the results, if any change in treatment is needed we will contact you. If you had an STI test: It will take 48 hours for the results. Please call after 1 week if you have not heard back. Prescriptions: Cyclobenzaprine [Flexeril] 5 mg PO TID PRN #20 tab PRN Reason: Muscle Spasm Ibuprofen [Motrin] 600 mg PO Q6 PRN #30 tab PRN Reason: Pain, Moderate (4-7) Lidocaine 5% [Lidoderm] 1 ea TD DAILY PRN #4 patch PRN Reason: Pain, Moderate (4-7) Referrals: Jakob Kaye MD [Family Provider] - Follow up with primary Forms: [employer] (Yakut), WORK NOTE
[2018-08-18 07:32] VITALS: TEMP 98.6
== END 2018-08-18 07:44 | disposition home or self-care (01) ==
LOC: ED 07:07
DX: S39.012A Strain of muscle, fascia and tendon of lower back, initial encounter (principal); X50.9XXA Other and unspecified overexertion or strenuous movements or postures, initial encounter; Y92.239 Unspecified place in hospital as the place of occurrence of the external cause; Y99.0 Civilian activity done for income or pay; E03.9 Hypothyroidism, unspecified; Z87.891 Personal history of nicotine dependence; Z98.84 Bariatric surgery status